=== PATIENT | female | born 1945 | race Caucasian/White ===

== ENCOUNTER → 2016-08-28 | Outpatient (CLI) | payer MEDICARE | END | disposition home or self-care (01) | LOC: CFH 12:10 | PROVIDERS: ATTEND Family Medicine | DX: N63 Unspecified lump in breast (principal); N64.4 Mastodynia | CPT/HCPCS: 76641; G0206 ==

== ENCOUNTER → 2017-06-15 | Outpatient (CLI) | payer MEDICARE | LOC: CFH 10:05 | PROVIDERS: ATTEND Obstetrics & Gynecology | DX: Z12.31 Encounter for screening mammogram for malignant neoplasm of breast (principal) | CPT/HCPCS: 77067 ==